=== PATIENT | male | born 1940 | race Caucasian/White ===

== ENCOUNTER 2022-01-07 16:07 | Observation (INO) | payer MEDICARE ==
[~2022-01-07] VITALS: Ht 185.4 cm; Wt 92.9 kg
--- NOTE | 2022-01-07 16:36 | NUR ---
PATIENT ROOMED WITH AT SIDE. NAD. [place].
[2022-01-07 17:12] LABS: HEMATOCRIT 40.2 % (39.0-50.0); HEMOGLOBIN 13.3 g/dl (14.0-18.0); IMMATURE GRANULOCYTES 0.2 % (0.0-5.0); MEAN CELL VOLUME 92.6 fL CALC (80.0-100.0); MEAN CORPUSCULAR HGB 30.6 pG CALC (26.0-32.0); MEAN CORPUSCULAR HGB CONC 33.1 g/dL CAL (32.0-36.0); NEUT# 7.51 thou/uL (1.82-7.42); RED BLOOD COUNT 4.34 mill/uL (4.70-6.10); RED CELL DISTRI WIDTH 12.2 % (11.5-15.5)
[2022-01-07 17:44] LABS: ALBUMIN 4.2 g/dL (3.2-5.0); ALKALINE PHOSPHATASE 75 u/l (38-126); BILIRUBIN, TOTAL 1.1 mg/dL (0.0-1.4); BUN 16 mg/dL (8-23); BUN/CREATININE RATIO 13 (12-20 (CALC)); CARBON DIOXIDE 30 mmol/l (22-30); CREATININE 1.3 mg/dL (0.7-1.3); GFR 53 ML/MIN (>=60 (CALC)); GFR FOR AFR.AMER. > 60 ML/MIN (>=60 (CALC)); SGOT/AST 21 u/l (19-48); SODIUM 138 mmol/l (137-146); TOTAL PROTEIN 7.1 g/dL (6.3-8.2)
[2022-01-07 17:45] LABS: ANION GAP 15 (6-22 (CALC)); CHLORIDE 98 mmol/l (95-108)
[2022-01-07 18:15] LABS: URINE BILIRUBIN - DIPSTICK NEGATIVE (NEGATIVE); URINE BLOOD DIPSTICK TRACE-INTACT (NEGATIVE); URINE COLOR YELLOW; URINE GLUCOSE - DIPSTICK NEGATIVE (NEGATIVE); URINE KETONE NEGATIVE (NEGATIVE); URINE LEUK ESTERASE TRACE (NEGATIVE); URINE NITRITE - DIPSTICK POSITIVE (Negative); URINE PROTEIN - DIPSTICK TRACE mg/dL (NEG-TRACE); URINE SPECIFIC GRAVITY 1.025; URINE UROBILINOGEN - DIPSTICK 0.2 E.U./dL (0.2)
[2022-01-07] MEDS ORDERED: TAMSULOSIN HCL0.4 MG PO (18:20)
[2022-01-07 18:25] LABS: URINE BACTERIA RARE hpf
--- NOTE | 2022-01-07 19:39 | NUR ---
REPORT RECEIVED FROM ER
--- NOTE | 2022-01-07 19:42 | NUR ---
REPORT GIVEN TO FE ON MS. BED NOT AVAILABLE YET.
--- NOTE | 2022-01-07 21:00 | NUR ---
ROOM READY PATIENT TRANSFERRED TO FLOOR VIA WHEELCHAIR ALERT AND O X 3 PLEASANT AND COOPERATIVE
--- NOTE | 2022-01-07 21:31 | NUR ---
PATIENT ARRUVED VIA WHEELCHAIR ACCOMPANIED BY Leslie SHINE RN.
--- NOTE | 2022-01-07 21:31 | NUR ---
ASSESMENT COMPLETED AT THIS TIME.
--- NOTE | 2022-01-08 00:30 | NUR ---
PATIENT UP TO THE RESTROOM AT THIS TIME. ADVISED PT TO CALL WHEN READY TO WALK BACK TO BED.
[2022-01-08 04:00] VITALS: BP 137/59
--- NOTE | 2022-01-08 04:00 | NUR ---
PATIENT SLEEPING SOUNDLY, DENIES ANY CURRENT NEEDS. CALL LIGHT WITHIN REACH.
[2022-01-08 06:15] LABS: HEMOGLOBIN 12.5 g/dl (14.0-18.0); MEAN CELL VOLUME 92.7 fL CALC (80.0-100.0); MEAN CORPUSCULAR HGB 30.5 pG CALC (26.0-32.0); MEAN CORPUSCULAR HGB CONC 32.9 g/dL CAL (32.0-36.0); RED BLOOD COUNT 4.1 mill/uL (4.70-6.10); RED CELL DISTRI WIDTH 12.3 % (11.5-15.5)
[2022-01-08 06:31] LABS: BUN 14 mg/dL (8-23); BUN/CREATININE RATIO 12 (12-20 (CALC)); CARBON DIOXIDE 29 mmol/l (22-30); CHLORIDE 103 mmol/l (95-108); CREATININE 1.2 mg/dL (0.7-1.3); GFR 58 ML/MIN (>=60 (CALC)); GFR FOR AFR.AMER. > 60 ML/MIN (>=60 (CALC)); SODIUM 140 mmol/l (137-146)
[2022-01-08 06:33] LABS: ANION GAP 12 (6-22 (CALC)); POTASSIUM 4.3 mmol/l (3.5-5.1)
--- NOTE | 2022-01-08 06:45 | NUR ---
REPORT RECEIVED FROM FE MCKENZIE. CARE ASSUMED
[2022-01-08 07:15] VITALS: BP 166/71
--- NOTE | 2022-01-08 07:15 | NUR ---
PATIENT RESTING IN BED AWAKE. PATIENT IS ALERT AND ORIENTED X3. SHIFT ASSESSMENT COMPLETED AT THIS TIME. IV PATENT X1. CALL LIGHT IN REACH. WILL CONTINUE OT MONITOR.
[2022-01-08] MEDS ORDERED: LEVAQUIN750 M1 PO (11:04)
--- NOTE | 2022-01-08 12:03 | NUR ---
Discharge instructions given. Patient verbalizes understanding of same. Discharged in stable condition via Wheelchair to Home with staff. All belongings sent with pt.
--- NOTE | 2022-01-10 08:20 | NUR ---
PRELIMINARY CULTURE RESULTS DISCUSSED WITH DR.RAJIAH RIVERA (-) RID IN 1/ VIALS. THE PATIENT WAS SEEN FOR UTI TREATED WITH ONE DOSE OF ROCEPHIN 1 GRAM AND DISCHARGED ON LEVAQUIN 750MG DAILY FOR 14 DAYS. NO NEW ORDERS AT THIS TIME.
--- NOTE | 2022-01-10 14:51 | NUR ---
Contacted @[phone] Mr. Powell, he stated he felt a little weakness, but overall better with no fever. Emphasized the importance to finish the anitbiotics even though he felt better and if he felt any worse to come back to the ED.
--- NOTE | 2022-01-11 09:41 | NUR ---
Reported final blood culture result of 1 of 4 growing E coli, same organism found in the urine, to Dr Dewitt. Pt currently on Levaquin 750 mg po daily x 14 days and reported feeling better yesterday with no fever. No new orders received at this time.
== END 2022-01-08 12:03 | disposition home or self-care (01) ==
LOC: ED 16:07 → ED-I 19:00 → ED 19:16 → MS2 19:17
PROVIDERS: Family Medicine; ADMIT Hospitalist; ATTEND Hospitalist
DX: N39.0 Urinary tract infection, site not specified (principal); B96.20 Unspecified Escherichia coli [E. coli] as the cause of diseases classified elsewhere; Z90.5 Acquired absence of kidney; Z20.822 Contact with and (suspected) exposure to COVID-19